=== PATIENT | male | born 1985 | race African-American/Black ===

== ENCOUNTER 2017-07-22 10:32 | Emergency (ER) | payer OTHER ==
[~2017-07-22] VITALS: Ht 175.3 cm; Wt 93.0 kg
[~2017-07-22 10:32] MED LIST: FLEXERIL PO; IBUPROFEN 800800 M1 PO
[2017-07-22 10:53] LABS: URINE BILIRUBIN NEGATIVE (Negative); URINE BLOOD TRACE (Negative); URINE COLOR YELLOW; URINE GLUCOSE-RANDOM* NEGATIVE (Negative); URINE KETONES NEGATIVE (Negative); URINE NITRITE NEGATIVE (Negative); URINE PROTEIN (DIPSTICK) NEGATIVE (Negative); URINE SPECIFIC GRAVITY <= 1.005 (1.003-1.035); URINE UROBILINOGEN 0.2 E.U./dl (0.2-1.0)
[2017-07-22 11:20] LABS: ABSOLUTE NEUTROPHILS 3.7 thou/uL (1.4-8.2); BASOPHILS 0.7 % (0.0-2.0); EOSINOPHILS 1.9 % (0.0-3.0); MCH 23.9 pg (26.0-34.0); MCHC 33.9 g/dL (28.0-37.0); MCV 70.5 fL (80.0-100.0); MONOCYTES 6.6 % (1.0-8.0); POLYS 64.8 % (36.0-66.0); RBC 6.66 mil/uL (4.50-6.00); RDW 13.7 % (10.5-14.5); WBC 5.7 thou/uL (4.0-11.0)
[2017-07-22] MEDS ORDERED: CLARITIN10 MG PO (11:20)
[2017-07-22 11:25] LABS: MANUAL DIFF NO
[2017-07-22] MEDS ORDERED: ZOFRAN ODT4 MG PO (11:32)
[2017-07-22] MEDS ORDERED: PHENERGAN 25 MG25 M1 PO (11:32)
[2017-07-22 11:33] LABS: ANION GAP 7 mmol/L (7-16); BUN 8 mg/dL (7-18); CALCIUM 9.7 mg/dL (8.5-10.1); CHLORIDE 101 mmol/L (98-107); CO2 25 mmol/L (21-32); CREATININE 0.9 mg/dL (0.7-1.3); GLUCOSE 99 mg/dL (74-106); SODIUM 133 mmol/L (136-145)
[2017-07-22 11:34] LABS: POTASSIUM 4.4 mmol/L (3.5-5.1)
[2017-07-22 11:39] LABS: ALBUMIN 4.1 g/dL (3.4-5.0); ALKALINE PHOSPHATASE 82 U/L (46-116); DIRECT BILIRUBIN < 0.1 mg/dL (<0.1-0.3); SGOT 36 U/L (15-37); SGPT 30 U/L (30-65); TOTAL BILIRUBIN 0.8 mg/dL (<0.1-1.0); TOTAL PROTEIN 7.8 g/dL (6.4-8.2)
[2017-07-22 11:47] VITALS: BP 140/93
[2017-07-22 12:00] LABS: LARGE PLATELETS FEW; PLATELET COUNT 199 thou/uL (150-400); PLATELET ESTIMATE NORMAL
== END 2017-07-22 12:21 | disposition home or self-care (01) ==
LOC: ER 10:32
PROVIDERS: Emergency Medicine
DX: R10.13 Epigastric pain (principal); R11.2 Nausea with vomiting, unspecified; R19.7 Diarrhea, unspecified; J45.909 Unspecified asthma, uncomplicated; F10.99 Alcohol use, unspecified with unspecified alcohol-induced disorder